=== PATIENT | female | born 1965 | race Caucasian/White ===

== ENCOUNTER 2016-05-22 11:47 | Inpatient (IN) | payer MEDICARE, OTHER ==
[~2016-05-22] VITALS: Ht 172.7 cm; Wt 82.9 kg
[~2016-05-22 11:47] MED LIST: ALPR0.25 PO; AZAT50 PO; CYCL1TAB29 PO; GABA300C5 PO; HYDR-3366 PO; VENL75TA PO; VENTAER INH
[2016-05-22] MEDS ORDERED: PRED10 PO (12:06)
[2016-05-22] MEDS ORDERED: PLAQ200T PO (12:06)
[2016-05-22] MEDS ORDERED: TRAZ100T4 PO (12:06)
[2016-05-22] MEDS ORDERED: ZOFR4TAB PO (12:06)
[2016-05-22] MEDS ORDERED: PANT20 PO (12:06)
[2016-05-22] MEDS ORDERED: FOLI5CAP PO (12:06)
--- NOTE | 2016-06-02 14:18 | MH ---
cc: VICKY PEDROZA MD, ROHIT K. M.D. BEG, SHAZIA A. MD VINTIMILLA, MARIA V. MD SRISAWAT, ANUNPORN M.D. DATE OF ADMISSION: 06/03/2016 ADMISSION DIAGNOSIS Cervical stenosis. HISTORY OF PRESENT ILLNESS This is a 50-year-old female who presented with complaints of neck pain with radiation to the right shoulder and arm to the hands as well as chronic low back pain and left leg sciatica pain. She states her pain started about 2-1/2 years ago. She states that she has pain in the left buttocks and lateral leg with numbness in her leg and the toes of her left foot. She gets excruciating spasms in the left leg. Standing exacerbates her symptoms or if she is sitting for awhile. She cannot walk around doing errands and shopping. Her left leg feels heavy when getting into her car. She has been to PT in the past which did not help. She has been to Pain Management in [place] and locally without any improvement in her symptoms. Her life is affected in every possible way. She states that if she lays down or extends her back, this helps. She has had a previous anterior C6-C7 diskectomy with fusion and plate placement in [address] Dawson at [facility] in [facility] and states that she had ongoing symptoms postoperatively with perhaps slight improvement. She also has a history of recurrent generalized seizures and is followed by Neurology. She has been taking Gabapentin which seems to have helped with the seizure for the last couple months but not affecting her chronic pain. She also has chronic steroid therapy for lupus as well as rheumatoid arthritis and is followed by Rheumatology. PAST MEDICAL HISTORY: Significant for - 1. Emphysema. 2. Gastroesophageal reflux disease. 3. Peptic ulcer. 4. Rheumatoid arthritis. 5. Seizures. 6. Depression. 7. Also significant for lupus. MEDICATIONS 1. Gabapentin 300 mg four times a day. 2. Prednisone 10 mg daily. 3. Azathioprine 50 mg b.i.d. 4. Plaquenil 20 mg b.i.d. this was placed on hold prior to surgical intervention. 5. Venlafaxine 75 mg b.i.d. 6. Cyclobenzaprine 10 mg daily. 7. Trazodone 200 mg q.h.s. 8. Pantoprazole 40 mg daily. PAST SURGICAL HISTORY 1. She has cervical fusion in March 2011. 2. Hysterectomy. 3. . 4. Cholecystectomy. 5. Appendectomy. FAMILY HISTORY Mother is at 60 68 years old, had cancer. Her father is ; she is unsure of the cause. She has two sisters and a brother who are alive. SOCIAL HISTORY She is retired. She is single. She has two children. She smokes a pack of cigarettes a day for the last 35 years. She also smokes marijuana. REVIEW OF SYSTEMS Constitutional: She denies any fever. Positive for chills. Ears, Nose and Throat: Positive for headaches and dizziness. Cardiovascular: No chest pain. Positive for palpitations. Respiratory: Positive for cough and wheezing. Genitourinary: No dysuria or hematuria. Musculoskeletal: Positive for neck and low back pain. Skin: Positive for rash. Neurologic: Positive for memory. No facial weakness or numbness. Gastrointestinal: No abdominal pain or diarrhea. Positive for constipation. Psychiatric: Positive for anxiety and depression symptoms. Endocrine: No polyuria or polydipsia. Hematologic: Positive for easy bruising but no bleeding tendencies. PHYSICAL EXAMINATION Head: Normocephalic, atraumatic. Neck: Supple. No carotid bruits heard on auscultation. Lungs: Clear to auscultation bilaterally. Heart. Regular rate and rhythm. Normal S1 and S2. Abdomen: Soft, nontender. Positive bowel sounds. Skin: No cyanosis or erythema. Musculoskeletal: She has left EHL weakness. She has a positive straight leg raise test at about 60 degrees. She otherwise has 5/5 strength in the upper and lower extremities. She ambulates without any assistive devices. She has restricted range of motion and stiffness in her neck. Neurologic: She is awake, alert and oriented. Cranial nerves II-XII are grossly intact. Her speech is fluent. Comprehension is good. Sensation is intact in the extremities. DATA REVIEWED Reviewed an MRI of the cervical spine from October 07, 2015, which reveals a disc herniation at the C5-C6 level which is moderate in size and eccentric to the right side with a ventral thecal sac compression and foraminal stenosis. She has an anterior C6/C7 interbody spacer in place along with anterior cervical plate. An MRI of the lumbar spine from October 17, 2015, shows a disc protrusion at the left L5/S1 level with overall mild to moderate foraminal stenosis. She has also had an EMG nerve conduction study which is consistent with a left S1 radiculopathy. IMPRESSION A 50-year-old female with a chronic history of neck and low back pain who has failed physical therapy and interventional pain management. She states that the last course of epidural steroid injections triggered some seizures. She has chronic epilepsy and reports that this is being treated. She has had a previous anterior C6-C7 diskectomy with fusion in 2010 by a local neurosurgeon with limited benefit. Her neck pain radiates in particular to the right shoulder and upper extremity in a non-dermatomal pattern. She has moderate C5-C6 disc herniation into the right side above the previous C6-C7 fusion. She also has low back pain which radiates into the left lateral thigh and calf to the foot with paresthesias in all of her toes. She has mild to moderate disk protrusion at the L5-S1 level eccentric to the left side. PLAN We have discussed the treatment options with the patient which include an anterior C5-C6 microdiskectomy with fusion with plate placement and removal of the previous C6-C7 plate. The procedure as well as the risks, benefits, alternatives and recovery time were explained and agreed to by the patient and we have discussed that there is a possibility that she may not improve or even be worse. We have also discussed the risk of voice hoarseness and ptosis as well as dysphagia with a re-do anterior cervical procedure involving an adjacent level. We have also discussed treatment of her lumbar spine which we would recommend continued conservative treatment measures at this point. The patient is requesting that we proceed with cervical spine surgery. She understands the risks involved with surgery which include but are not limited to bleeding, infection, muscle weakness, voice hoarseness, difficulty swallowing, heart attack, stroke, blood clots, non-fusion, scar tissue formation, voice hoarseness and ptosis as well as dysphagia. She understands the procedure as well as those risks involved and she is requesting that we proceed and she was therefore scheduled accordingly. Dictated by: Brad Bloom PA-C MD EMILY Gomez/GRACIE /1:29 PM /1:55 PM
[2016-06-03] MEDS ORDERED: VANCOMYCIN 1,000 MG/NS 250ML (for <70 kg) IV SCH ×2 (06:15)
[2016-06-03] MEDS ORDERED: METOPROLOL TARTRATE 25 MG TAB PO PRN (06:15)
[2016-06-03] MEDS ORDERED: INSULIN HUMAN REGULAR 1,000 UNITS/10 ML VIAL SQ PRN (06:15)
[2016-06-03 06:21] VITALS: BP 119/80; PULSE 94; RESP 16; TEMP 97.1; O2SAT 94
[2016-06-03 06:41] VITALS: BP 119/80; PULSE 94; RESP 16; TEMP 97.1; O2SAT 94
[2016-06-03] MEDS ORDERED: VANCOMYCIN HCL 1000 MG VIAL ONE ×2 (06:59→08:18)
[2016-06-03] MEDS ORDERED: THROMBIN (TOPICAL) 5,000 UNIT VIAL ONE (06:59)
[2016-06-03] MEDS ORDERED: GELFOAM SIZE 100 ONE (06:59)
[2016-06-03] MEDS ORDERED: BUPIVACAINE/EPINEPHRINE 0.5% 50 ML VIAL ONE (07:08)
[2016-06-03] MEDS ORDERED: FAMOTIDINE 20 MG/2 ML VIAL ONE (07:52)
[2016-06-03] MEDS ORDERED: diphenhydrAMINE HCL 50 MG/ML VIAL ONE (07:52)
[2016-06-03] MEDS ORDERED: HYDROCORTISONE SOD SUCCINATE 100 MG VIAL ONE (07:52)
[2016-06-03] MEDS ORDERED: MIDAZOLAM HCL 2 MG/2 ML VIAL ONE (07:52)
[2016-06-03] MEDS ORDERED: RESP: ALBUTEROL 2.5 MG/3 ML NEB (SCH) ONE (07:56)
[2016-06-03] MEDS ORDERED: SODIUM CHLOR 0.9% 1000 ML INJ 1,000 ML IV SCH (08:00)
[2016-06-03] MEDS ORDERED: SODIUM CHLORID 0.9% 500 ML IV SCH (08:00)
[2016-06-03] MEDS ORDERED: LACTATED RINGER'S 1000 ML IV SCH (08:00)
[2016-06-03] MEDS ORDERED: PROPOFOL 200 MG/20 ML AMP IV ONE (08:07)
[2016-06-03] MEDS ORDERED: LACTATED RINGER'S 1000 ML INJ 1,000 ML IV ONE (08:07)
[2016-06-03] MEDS ORDERED: NEOSTIGMINE 3 MG/3 ML SYR IV ONE (08:07)
[2016-06-03] MEDS ORDERED: ONDANSETRON HCL 4 MG/2 ML VIAL IV PUSH ONE (08:07)
[2016-06-03] MEDS ORDERED: PHENYLEPHRINE HCL 10 MG/ML VIAL IV ONE (08:07)
[2016-06-03] MEDS ORDERED: NS + KCL 20 MEQ INJ 1,000 ML IV SCH (10:44)
[2016-06-03] MEDS ORDERED: cloNIDine HCL 0.1 MG TAB PO PRN (10:45)
[2016-06-03] MEDS ORDERED: ALPRAZolam 0.25 MG TAB PO PRN (10:45)
[2016-06-03] MEDS ORDERED: BISACODYL 10 MG SUPP PR PRN (10:45)
[2016-06-03] MEDS ORDERED: MAGNESIUM HYDROXIDE SUSP 30 ML CUP PO PRN (10:45)
[2016-06-03] MEDS ORDERED: ACETAMINOPHEN/HYDROcodone 325 MG/10 MG TAB PO PRN (10:45)
[2016-06-03] MEDS ORDERED: ONDANSETRON HCL 4 MG/2 ML VIAL IV PRN (10:45)
[2016-06-03] MEDS ORDERED: RESP: ALBUTEROL 2.5 MG/3 ML NEB (PRN) NEB (10:45)
[2016-06-03] MEDS ORDERED: MENTHOL LOZENGE SUCK-ON PRN (10:45)
[2016-06-03] MEDS ORDERED: ALBUTEROL SULFATE 90 MCG/ACT HFA 8 GM INHALER INH PRN (10:45)
[2016-06-03] MEDS ORDERED: PROMETHAZINE INJ 25 MG/ML VIAL IM PRN (10:45)
[2016-06-03] MEDS ORDERED: ZOLPIDEM TARTRATE 5 MG TAB PO PRN (10:45)
[2016-06-03] MEDS ORDERED: ALUMINUM/MAGNESIUM/SIMETH 30 ML CUP PO PRN (10:45)
[2016-06-03] MEDS ORDERED: SODIUM CHLORIDE 0.9% FLUSH 5 ML FLUSH IVF PRN (10:45)
[2016-06-03] MEDS ORDERED: fentaNYL CITRATE 250 MCG/5 ML AMP ONE (10:51)
--- NOTE | 2016-06-03 10:55 | PD.OP ---
cc: Wilder Mccormick MD; Clif Guerra MD Operative Report Date of Surgery: Jun 03, 2016 Preoperative Diagnosis: Cervical C5-6 disc herniation with associated neck pain and intractable radiculopathy; previous C6-7 anterior cervical fusion with plate placement Postoperative Diagnosis: Same Procedure: Anterior cervical C5-6 microdiscectomy with interbody fusion; anterior C5-6 plate placement; removal of C6-7 anterior cervical plate; C5-6 interbody cage placement; microsurgical technique Anesthesia: Gen. endotracheal by Mera Carrillo Surgeon: Marcel Bueno M.D. Manager Sterile Processing(s): Nallely Castillo Operation and Findings: Following administration of general endotracheal anesthesia, the patient received a gram of vancomycin and Decadron 10 mg intravenously. Sequential compression devices were placed in supine position on a Deion table and all pressure points adequately padded. The head secured in a donut and anterior cervical region then shaved and prepped with Chloraprep and sterilely draped with Ioban along with the usual sterile draping. A transverse skin incision on the right side of the neck at the previous incision site was then made after infiltrating the skin with 0.5% Marcaine with epinephrine solution extending down through the platysma. At the anterior border of the sternocleidomastoid further dissection was undertaken developing a plane between the carotid sheath laterally and the trachea esophagus medially. The prevertebral fascia was exposed and dissected out. The medial attachments of the longus colli muscles were detached and a self-retaining retractor used for exposure. The C5-6 disc space was localized with a marking the disc space and using lateral fluoroscopy and the anterior C6-7 cervical plate was evident and was removed along with the screws. A solid C6-7 interbody fusion was noted. Woodruff distraction screws 14 mm length were placed one in the C5 and one in the C6 body interbody distraction and exposure. There was significant disc degeneration with disc height collapse and anterior osteophytes noted at the C5-6 level and the osteophytes were resected with a Leksell and annulus incised with a 15 blade and further dissection undertaken using microtechnique with microscope magnification. Diskectomy was undertaken with pituitaries and the endplates were also decorticated with curettes and drill bit. And more posteriorly there was disk osteophyte complex compressing the thecal sac along with a significant uncovertebral joint hypertrophy with foraminal stenosis which was decompressed along with removal of the posterior longitudinal ligaments at both levels. There is also herniated disc fragment and fairly migrated on the right side which was removed. The foramen was decompressed bilaterally using a Kerrison's and palpation with a nerve hook, the exiting nerve roots were felt to be free. The area was then copiously irrigated. I then placed a Peek cage packed with local autograft bone at the C5-6 interspace under fluoroscopy guidance. Woodruff distraction pins were removed and the holes plugged with Gelfoam for hemostasis. In order to facilitate the fusion and provide stabilization, a Precision spine cervical plate was then placed with two 14 mm variable angle screws in the C5 body and two 14 mm fixed angle screws in the C6 body. The plate screw locking mechanism was then engaged. AP and lateral fluoroscopy confirmed good placement of the construct and the retractor was then removed. Muscular bleeding points were cauterized with bipolar cautery and Gelfoam was then also used for hemostasis which was removed. The platysma was then approximated using 3-0 Vicryl interrupted stitches and 3-0 Vicryl subcuticular stitch also placed in an interrupted fashion, and final skin closure was with Mastisol and Steri-Strips. Sterile dressing was then applied. The patient was then extubated and taken to the recovery room. There are no intraoperative complications and all sponge and needle counts were correct at the end of procedure. Estimated blood loss was less than 50 cc. The patient did undergo intraoperative neurologic monitoring which remained stable throughout the surgery. Marcel Bueno MD Jun 03, 2016 10:55
[2016-06-03] MEDS ORDERED: *HYDROmorphone PF 1 MG VIAL PERIprocedural Use ONLY ONE ×2 (11:00→11:44)
[2016-06-03] MEDS ORDERED: DO NOT ADM ANY ANTICOAGULANT DRUGS XX PRN (11:15)
--- NOTE | 2016-06-03 11:22 | RADRPT ---
EXAM DATE/TIME: 06/03/2016 08:23 [facility] COMPARISON: No previous studies available for comparison. INDICATIONS: Anterior cervical fusion C5-6, removal hardware C6-7. MEDICAL HISTORY: Spinal stenosis. SURGICAL HISTORY: Anterior cervical fusion 6-7. ENCOUNTER: Initial ACUITY: 1 day PAIN SCORE: 0/10 LOCATION: Cervical spine. FINDINGS: Patient is status post anterior cervical fusion at C5-C6 with bone plate and screws. Alignment is an atomic in the AP and lateral projection. CONCLUSION: Anatomic alignment. Steve Pitts MD FACR on June 03, 2016 at 11:05 Board Certified Radiologist. This report was verified electronically.
[2016-06-03] MEDS: CLINDAMYCIN INJ 600 MG in SODIUM CHLORIDE 0.9% INJ 100 ML IV SCH ×3 (11:56→23:43)
[2016-06-03] MEDS: VENLAFAXINE HCL 75 MG TAB PO SCH ×2 (13:49→18:27)
[2016-06-03] MEDS: CYCLOBENZAPRINE HCL 10 MG TAB PO SCH ×2 (13:49→18:27)
[2016-06-03] MEDS: HYDROCORTISONE SOD SUCCINATE 100 MG VIAL IV PUSH SCH ×2 (14:00→21:29)
[2016-06-03] MEDS: ACETAMINOPHEN/HYDROcodone 325 MG/10 MG TAB PO PRN ×2 (14:15→23:47)
[2016-06-03] MEDS ORDERED: *PROMETHAZINE 25 MG/ML VIAL PERIprocedural use ONLY ONE (14:16)
[2016-06-03 16:37] VITALS: BP 119/61; PULSE 58; RESP 20; TEMP 95.7; O2SAT 98
[2016-06-03] MEDS: HYDROmorphone HCL PF 1 MG/ML VIAL IV PUSH PRN ×2 (16:43→19:55)
[2016-06-03 20:59] VITALS: BP 126/76; PULSE 100; RESP 20; TEMP 97.4; O2SAT 98
[2016-06-03] MEDS ORDERED: traZODone HCL 100 MG TAB PO SCH (21:00)
[2016-06-03] MEDS ORDERED: predniSONE 10 MG TAB PO SCH (21:00)
[2016-06-03] MEDS: SODIUM CHLORIDE 0.9% FLUSH 5 ML FLUSH IVF SCH (21:00)
[2016-06-03] MEDS: DOCUSATE SODIUM 100 MG CAP PO SCH (21:15)
[2016-06-03] MEDS: GABAPENTIN 300 MG CAP PO SCH (21:16)
[2016-06-03] MEDS: HYDROXYCHLOROQUINE SULFATE 200 MG TAB PO SCH (21:28)
[2016-06-04 00:35] VITALS: BP 113/71; PULSE 95; RESP 18; TEMP 97.4; O2SAT 93
[2016-06-04 04:24] VITALS: BP 113/74; PULSE 96; RESP 16; TEMP 97.2; O2SAT 94
[2016-06-04] MEDS: HYDROmorphone HCL PF 1 MG/ML VIAL IV PUSH PRN ×2 (05:05→08:54)
[2016-06-04] MEDS: CLINDAMYCIN INJ 600 MG in SODIUM CHLORIDE 0.9% INJ 100 ML IV SCH (05:10)
[2016-06-04] MEDS: HYDROCORTISONE SOD SUCCINATE 100 MG VIAL IV PUSH SCH (05:10)
[2016-06-04 08:00] VITALS: BP 125/71; PULSE 93; RESP 18; TEMP 96.2; O2SAT 93
--- NOTE | 2016-06-04 08:54 | HHI.NSPN ---
History Chief Complaint: Low back pain. Interval History Pt underwent a C5/C6 ACF with removal of C6/C7 cervical plate. She states he neck is feeling sore but her low back is faring up. No radiculopathy in UEs. No paresthesias in UEs. She is urinating well. Requests discharge home today. Review of Systems General: Negative for: fever, chills, insomnia Respiratory: Negative for: shortness of breath, cough, sputum Cardiovascular: Negative for: chest pain Gastrointestinal: Negative for: nausea, vomitting, diarrhea, constipation Exam Results Vital Signs Date Time Temp Pulse Resp B/P Pulse Ox O2 Delivery O2 Flow Rate FiO2 06/04/16 05:35 18 06/04/16 04:24 97.2 96 113/74 94 06/03/16 18:10 Nasal Cannula 2.00 Intake and Output 06/03/16 06/03/16 06/03/16 07:59 15:59 23:59 Intake Total 1970 ml 120 ml Output Total 425 ml 550 ml Balance 1545 ml -430 ml Physical Examination Resp: CTA bilaterally Heart: NSR no murmurs Abd: soft positive bs Skin: No cyanosis or erythema Muscle: Moves all 4 extremities. Mild 4/5 right hand intrinsic weakness, otherwise 5/5 strength. Neuro: Pt awake and alert. Follows commands well. Speech clear and appropriate. Lab, Micro, Other Results 06/03/16 06/03/16 06/04/16 14:59 22:59 06:59 Intake Total 1970 ml 120 ml Output Total 425 ml 550 ml Balance 1545 ml -430 ml Intake Oral 30 ml 120 ml IV Total 140 ml Other 1800 ml Output Urine Total 550 ml Estimated Blood Loss 25 ml Other 400 ml # Voids 2 2 # Bowel Movements 0 0 Medical Decision Making Impression and Plan A: 50 y/o FM s/p C5/C6 anterior cervical fusion with removal of C6/C7 cervical plate. P: Discharge pt home today. Discussed restrictions with pt. change bandage daily. Brad Bloom Jun 04, 2016 08:54
[2016-06-04] MEDS: DOCUSATE SODIUM 100 MG CAP PO SCH (08:56)
[2016-06-04] MEDS: VENLAFAXINE HCL 75 MG TAB PO SCH (08:56)
[2016-06-04] MEDS: GABAPENTIN 300 MG CAP PO SCH (08:57)
[2016-06-04] MEDS: HYDROXYCHLOROQUINE SULFATE 200 MG TAB PO SCH (08:57)
[2016-06-04] MEDS: CYCLOBENZAPRINE HCL 10 MG TAB PO SCH (08:57)
[2016-06-04] MEDS: SODIUM CHLORIDE 0.9% FLUSH 5 ML FLUSH IVF SCH (08:58)
[2016-06-04] MEDS ORDERED: FOLIC ACID 1 MG TAB PO SCH (09:00)
[2016-06-04] MEDS ORDERED: PANTOPRAZOLE SOD 20 MG DELAYED RELEASE TAB PO SCH (09:00)
[2016-06-04] MEDS ORDERED: azaTHIOprine 50 MG TAB PO SCH (09:00)
[2016-06-04] MEDS ORDERED: HYDR-3583 PO (09:21)
[2016-06-04 10:29] VITALS: O2SAT 94
[2016-06-12] MEDS ORDERED: MEDR4PAK PO (14:03)
[2016-06-12] MEDS ORDERED: DIAZ5 PO (14:21)
[2016-06-30] MEDS ORDERED: DIAZ5 PO (08:20)
[2016-06-30] MEDS ORDERED: HYDR-3583 PO (08:20)
[2016-07-15] MEDS ORDERED: DIAZ5 PO (15:27)
[2016-07-27] MEDS ORDERED: NORC5TAB PO (10:56)
[2016-08-20] MEDS ORDERED: HYDR-3583 PO (14:32)
[2016-08-20] MEDS ORDERED: DIAZ5 PO (14:32)
== END 2016-06-04 10:46 | disposition home or self-care (01) | DRG 473 ==
LOC: HSDI 06-03 05:41 → N05B 06-03 16:13
PROVIDERS: ADMIT Neurological Surgery; ATTEND Neurological Surgery
PROC: 0RB30ZZ Excision of Cervical Vertebral Disc, Open Approach (ICD-10-PCS; 2016-06-03)
PROC: 0RP104Z Removal of Internal Fixation Device from Cervical Vertebral Joint, Open Approach (ICD-10-PCS; 2016-06-03)
PROC: 4A11X4G Monitoring of Peripheral Nervous Electrical Activity, Intraoperative, External Approach (ICD-10-PCS; 2016-06-03)
PROC: 0RG10A0 Fusion of Cervical Vertebral Joint with Interbody Fusion Device, Anterior Approach, Anterior Column, Open Approach (ICD-10-PCS; principal; 2016-06-03 08:07)
DX: M50.122 Cervical disc disorder at C5-C6 level with radiculopathy (principal); J43.9 Emphysema, unspecified; M32.9 Systemic lupus erythematosus, unspecified; M48.02 Spinal stenosis, cervical region; M51.16 Intervertebral disc disorders with radiculopathy, lumbar region; G89.29 Other chronic pain; F17.210 Nicotine dependence, cigarettes, uncomplicated; K21.9 Gastro-esophageal reflux disease without esophagitis; M06.9 Rheumatoid arthritis, unspecified; G40.909 Epilepsy, unspecified, not intractable, without status epilepticus; Z98.1 Arthrodesis status; M51.17 Intervertebral disc disorders with radiculopathy, lumbosacral region; Z79.52 Long term (current) use of systemic steroids; F32.9 Major depressive disorder, single episode, unspecified
CPT/HCPCS: 72040; 76000; 94150; 94664; C1713; J1170; J1200; J1720; J2250; J2370; J2405; J2550; J2710; J3010; J3370; J3480; J7120; J7500; J7512; J7613; L0150; L0172

== ENCOUNTER 2016-06-27 00:36 | Emergency (ER) | payer MEDICARE, OTHER ==
[~2016-06-27] VITALS: Ht 172.7 cm; Wt 80.0 kg
[~2016-06-27 00:36] MED LIST changes: +DIAZ5 PO; +FOLI5CAP PO; -HYDR-3366 PO; +HYDR-3583 PO; +MEDR4PAK PO; +PANT20 PO; +PLAQ200T PO; +PRED10 PO; +TRAZ100T4 PO; +ZOFR4TAB PO
[2016-06-27 00:40] VITALS: BP 122/64; PULSE 92; RESP 22; TEMP 98.6; O2SAT 95
--- NOTE | 2016-06-27 01:04 | PD ---
HPI Chief Complaint: Respiratory Symptoms Time Seen by Provider: 00:56 Travel History International Travel<30 days: No Contact w/Intl Traveler<30days: No Traveled to known affect area: No History of Present Illness HPI This is a 50-year-old female who had an ACDF on June 03 who presents to the emergency department with cough, rhinorrhea, headache, and subjective chills for 1 week. She says her symptoms of worsened over the past day. She has a productive cough with green and yellow sputum. She does have a smoking history. She has been taking [place] ever since her surgery but she doesn't have any left. She says she feels miserable and every time she coughs her head hurts and she feels like her neck wound is going to "explode". PFSH Past Medical History Arthritis: Yes (RHEUMATOID) Autoimmune Disease: Yes (LUPUS) Heart Rhythm Problems: No Cancer: No Cardiac Catheterization: No Cardiovascular Problems: No High Cholesterol: No Congestive Heart Failure: No Diabetes: No Diminished Hearing: No Endocrine: No Gastrointestinal Disorders: Yes (ENLARGED LIVER) Genitourinary: No Hepatitis: No Hiatal Hernia: No Hypertension: No Immune Disorder: Yes (LUPUS) Musculoskeletal: Yes (RA) Neurologic: Yes (SEIZURE) Psychiatric: No (ANXIETY, DEPRESSION) Myocardial Infarction: No Seizures: Yes Thyroid Disease: No Menopausal: Yes Ectopic : Yes (4) Past Surgical History Abdominal Surgery: Yes (APPENDECTOMY, CHOLECYSTECTOMY) AICD: No Appendectomy: Yes Cardiac Surgery: No Section: Yes Cholecystectomy: Yes Coronary Artery Bypass Graft: No Ear Surgery: No Endocrine Surgery: No Eye Surgery: No Genitourinary Surgery: No Gynecologic Surgery: Yes (HYSTERECTOMY) Hysterectomy: Yes Joint Replacement: No Oral Surgery: No Pacemaker: No Thoracic Surgery: No Other Surgery: Yes (LUNG BX) Social History Alcohol Use: No Tobacco Use: Yes (1ppd) Substance Use: Yes (MARIJUIANA) Allergies-Medications (Allergen,Severity, Reaction): Coded Allergies: Codeine (Verified Allergy, Severe, "DUE TO LIVER", 06/27/16) Morphine (Verified Allergy, Severe, 06/27/16) Tylenol (Verified Allergy, Severe, "DUE TO LIVER", 06/27/16) Vicodin (Verified Allergy, Severe, "DUE TO LIVER", 06/27/16) Penicillin (Verified Allergy, Intermediate, vomiting, 06/27/16) Azithromycin (Verified Allergy, Unknown, 06/27/16) Toradol (Verified Adverse Reaction, Mild, "makes me violently sick", ) Reported Meds & Prescriptions Reported Meds & Active Scripts Active Reported Trazodone (Trazodone HCl) 100 Mg Tab 200 Mg PO HS Protonix (Pantoprazole Sodium) 20 Mg Tab 20 Mg PO DAILY Prednisone 10 Mg Tab 10 Mg PO HS Plaquenil (Hydroxychloroquine Sulfate) 200 Mg Tab 200 Mg PO BID Take with food Folic Acid 5 Mg Cap 5 Mg PO DAILY Ventolin Hfa 18 GM Inh (Albuterol Sulfate) 90 Mcg/Act Aer 2 Puff INH Q4-6H PRN Effexor (Venlafaxine HCl) 75 Mg Tab 75 Mg PO TID Gabapentin 300 Mg Cap 600 Mg PO BID Flexeril (Cyclobenzaprine HCl) 10 Mg Tab 10 Mg PO TID Azathioprine 50 Mg Tab 50 Mg PO DAILY Hazardous agent use appropriate precautions for handling and disposal. Review of Systems Except as stated in HPI: all other systems reviewed are Neg Physical Exam Narrative GENERAL: Tearful, anxious SKIN: Warm and dry. HEAD: Atraumatic. Normocephalic. EYES: Pupils equal and round. No injection or drainage. ENT: Moist mucous membranes NECK: Trachea midline. Neck is immobilized in a cervical collar. CARDIOVASCULAR: Regular rate and rhythm. No murmur appreciated. RESPIRATORY: Diffuse wheezing, tachypnea GASTROINTESTINAL: Abdomen soft, non-tender, nondistended. MUSCULOSKELETAL: No obvious deformities. NEUROLOGICAL: Awake and alert. No obvious cranial nerve deficits. Moving all extremities. PSYCHIATRIC: Appropriate mood and affect; insight and judgment normal. Data Data Last Documented VS Vital Signs Date Time Temp Pulse Resp B/P Pulse Ox O2 Delivery O2 Flow Rate FiO2 06/27/16 03:10 85 20 102/66 92 Nasal Cannula 2 06/27/16 01:09 98.5 Orders Complete Blood Count With Diff (06/27/16 01:01) Comprehensive Metabolic Panel (06/27/16 01:01) Chest, Single Ap (06/27/16 ) Influenzae A/B Antigen (06/27/16 01:01) Methylprednisolone So Succ Inj (Solumedr (06/27/16 01:15) Albuterol-Ipratropium Neb (Duoneb Neb) (06/27/16 01:15) Acetamin-Hydrocod 325-5 Mg ([place] 5-325 (06/27/16 01:15) Hydromorphone Pf Inj (Dilaudid Pf Inj) (06/27/16 02:15) Ondansetron Inj (Zofran Inj) (06/27/16 02:30) Lorazepam Inj (Ativan Inj) (06/27/16 02:45) Labs Laboratory Tests Test 06/27/16 01:44 White Blood Count 8.1 TH/MM3 Red Blood Count 4.63 MIL/MM3 Hemoglobin 15.4 GM/DL Hematocrit 43.9 % Mean Corpuscular Volume 94.7 FL Mean Corpuscular Hemoglobin 33.3 PG Mean Corpuscular Hemoglobin 35.1 % Concent Red Cell Distribution Width 13.4 % Platelet Count 242 TH/MM3 Mean Platelet Volume 8.7 FL Neutrophils (%) (Auto) 59.8 % Lymphocytes (%) (Auto) 29.9 % Monocytes (%) (Auto) 6.6 % Eosinophils (%) (Auto) 2.5 % Basophils (%) (Auto) 1.2 % Neutrophils # (Auto) 4.9 TH/MM3 Lymphocytes # (Auto) 2.4 TH/MM3 Monocytes # (Auto) 0.5 TH/MM3 Eosinophils # (Auto) 0.2 TH/MM3 Basophils # (Auto) 0.1 TH/MM3 CBC Comment DIFF FINAL Differential Comment Sodium Level 142 MEQ/L Potassium Level 3.8 MEQ/L Chloride Level 108 MEQ/L Carbon Dioxide Level 24.0 MEQ/L Anion Gap 10 MEQ/L Blood Urea Nitrogen 15 MG/DL Creatinine 1.11 MG/DL Estimat Glomerular Filtration 52 ML/MIN Rate Random Glucose 94 MG/DL Calcium Level 8.5 MG/DL Total Bilirubin 0.2 MG/DL Aspartate Amino Transf 11 U/L (AST/SGOT) Alanine Aminotransferase 22 U/L (ALT/SGPT) Alkaline Phosphatase 87 U/L Total Protein 7.1 GM/DL Albumin 3.3 GM/DL MDM Medical Decision Making Medical Screen Exam Complete: Yes Emergency Medical Condition: Yes Interpretation(s) Afebrile, mild tachycardia, normotensive No leukocytosis Electrolytes within normal limits Last 24 hours Impressions Chest X-Ray 06/27/16 0000 Signed Impressions: Service Date/Time: Monday, June 27, 2016 01:11 - CONCLUSION: No acute disease. Marvin Ayala MD Differential Diagnosis Bronchitis, COPD exacerbation, pulmonary embolism, pneumonia Narrative Course This is a 50-year-old female who recently had an ACDF who presents to the emergency department with shortness of breath, and productive cough with yellow and green sputum. On exam. She has a smoking history. She is placed on a monitor and an IV was established. She was given serial bronchodilator treatments and methylprednisolone. Labs were obtained which were reassuring. Chest x-ray was negative for pneumonia. Patient was given pain control and an anxiolytic as she was very tearful and anxious upon arrival. She says she feels much better. Her wheezing has resolved. I think patient is appropriate for outpatient treatment for bronchitis. She will be discharged home. Diagnosis Primary Impression: Bronchitis Patient Instructions: General Instructions Additional Instructions: If you develop severe shortness of breath, chest pain, or difficulty breathing return to the emergency department. Use albuterol every 4 hours for the next 2 days. Then use as needed for wheezing. Complete your course of steroids. Complete your course of antibiotics. Follow up with your primary care physician in 2-3 days if your symptoms have not improved. Med/Other Pt SpecificInfo: Prescription(s) given, Existing Med Changed ( take 40 mg of prednisone for 4 days and then go back to 10 mg a day) Disposition: 01 DISCHARGE HOME Condition: Stable Daphney Hernandez MD Jun 27, 2016 01:04
[2016-06-27 01:09] VITALS: BP 118/74; PULSE 93; RESP 28; TEMP 98.5; O2SAT 96
[2016-06-27] MEDS ORDERED: ACETAMINOPHEN/HYDROcodone 325 MG/5 MG TAB PO ONE (01:15)
[2016-06-27] MEDS ORDERED: methylPREDNISolone SOD SUCC 125 MG/2 ML VIAL IV PUSH ONE (01:15)
--- NOTE | 2016-06-27 01:22 | RADRPT ---
EXAM DATE/TIME: 06/27/2016 01:11 [facility] COMPARISON: CHEST SINGLE AP, July 07, 2013, 18:15. INDICATIONS : Cough. MEDICAL HISTORY : None. SURGICAL HISTORY : Fusion, cervical. ENCOUNTER: Initial ACUITY: 3 days PAIN SCORE: 0/10 LOCATION: Bilateral chest FINDINGS: A single view of the chest demonstrates the lungs to be symmetrically aerated without evidence of mas s, infiltrate or effusion. The cardiomediastinal contours are unremarkable. Osseous structures are intact. ACDF hardware overlies the cervical spine. CONCLUSION: No acute disease. Marvin Ayala MD on June 27, 2016 at 1:20 Board Certified Radiologist. This report was verified electronically.
[2016-06-27] MEDS: RESP: ALBUTEROL 2.5 MG/IPRATROPIUM 0.5 MG NEB (SCH) INH (01:47)
[2016-06-27 02:04] LABS: AUTOMATED NEUTROPHIL # 4.9 TH/MM3 (1.8-7.7); BASOPHIL # 0.1 TH/MM3 (0-0.2); BASOPHIL % 1.2 % (0.0-2.0); EOSINOPHIL # 0.2 TH/MM3 (0-0.4); EOSINOPHIL % 2.5 % (0.0-4.0); HEMATOCRIT 43.9 % (35.0-46.0); HEMO FLAGS DIFF FINAL; LYMPH % 29.9 % (9.0-44.0); LYMPHOCYTE # 2.4 TH/MM3 (1.0-4.8); MEAN CELL VOLUME 94.7 FL (80.0-100.0); MEAN CORPUSCULAR HEMOGLOBIN 33.3 PG (27.0-34.0); MEAN CORPUSCULAR HGB CONC 35.1 % (32.0-36.0); MONO % 6.6 % (0.0-8.0); NEUT % 59.8 % (16.0-70.0); PLATELET COUNT 242 TH/MM3 (150-450); RED BLOOD COUNT 4.63 MIL/MM3 (4.00-5.30); RED CELL DISTRIBUTION WIDTH 13.4 % (11.6-17.2); WHITE BLOOD COUNT 8.1 TH/MM3 (4.0-11.0)
[2016-06-27] MEDS ORDERED: HYDROmorphone HCL PF 1 MG/ML VIAL IV PUSH ONE (02:15)
[2016-06-27 02:26] LABS: ALT (GPT) 22 U/L (10-53); ANION GAP 10 MEQ/L (5-15); AST (GOT) 11 U/L (15-37); BLOOD UREA NITROGEN 15 MG/DL (7-18); CHLORIDE 108 MEQ/L (98-107); GLOMERULAR FILTRATION RATE 52 ML/MIN (>89); POTASSIUM 3.8 MEQ/L (3.5-5.1); SODIUM (NA) 142 MEQ/L (136-145)
[2016-06-27 02:28] LABS: ALKALINE PHOSPHATASE 87 U/L (45-117); TOTAL BILIRUBIN ADULT 0.2 MG/DL (0.2-1.0)
[2016-06-27] MEDS ORDERED: ONDANSETRON HCL 4 MG/2 ML VIAL IV ONE (02:30)
[2016-06-27] MEDS ORDERED: LORazepam 2 MG/ML VIAL IV PUSH ONE (02:45)
[2016-06-27 03:10] VITALS: BP 102/66; PULSE 85; RESP 20; O2SAT 92
[2016-06-27] MEDS ORDERED: AZIT250T3 PO (03:22)
[2016-06-27] MEDS ORDERED: PRED20 PO (03:22)
[2016-06-30] MEDS ORDERED: DIAZ5 PO (08:20)
[2016-06-30] MEDS ORDERED: HYDR-3583 PO (08:20)
[2016-07-15] MEDS ORDERED: DIAZ5 PO (15:27)
[2016-07-27] MEDS ORDERED: NORC5TAB PO (10:56)
[2016-08-20] MEDS ORDERED: DIAZ5 PO (14:32)
[2016-08-20] MEDS ORDERED: HYDR-3583 PO (14:32)
== END 2016-06-27 03:37 | disposition home or self-care (01) ==
LOC: NEPC 00:36
DX: J40 Bronchitis, not specified as acute or chronic (principal); F17.200 Nicotine dependence, unspecified, uncomplicated; M32.9 Systemic lupus erythematosus, unspecified
CPT/HCPCS: 71010; 80053; 85025; 87804; 94640; 94664; 96374; 96375; 99284; J1170; J2060; J2405; J2930

== ENCOUNTER 2016-06-29 07:26 | Emergency (ER) | payer MEDICARE, OTHER ==
[~2016-06-29] VITALS: Ht 172.7 cm; Wt 80.0 kg
[~2016-06-29 07:26] MED LIST changes: -ALPR0.25 PO; +AZIT250T3 PO; -DIAZ5 PO; -HYDR-3583 PO; -MEDR4PAK PO; +PRED20 PO; -ZOFR4TAB PO
[2016-06-29 07:31] VITALS: BP 117/69; PULSE 104; RESP 24; TEMP 97.6; O2SAT 95
[2016-06-29 07:46] VITALS: BP 112/64; PULSE 89; RESP 24
[2016-06-29 07:51] VITALS: O2SAT 97
--- NOTE | 2016-06-29 07:54 | PD ---
HPI Chief Complaint: Respiratory Symptoms Time Seen by Provider: 07:40 Travel History International Travel<30 days: No Contact w/Intl Traveler<30days: No Traveled to known affect area: No History of Present Illness HPI 50yo F with PMH of lupus and cig smoker here with c/o shortness of breath. Pt was just here 06/27/16 for similar complaints and discharged with impression of bronchitis and given prednisone. Pt is very anxious appearing and states she cant breathe. Pt is hyperventilating and complains of left ear pain, coughing, rhinorrhea. States there is chest pain with cough. Denies any fever, n/v, abdominal pain, focal weakness or numbness. PFSH Past Medical History Arthritis: Yes (RHEUMATOID) Autoimmune Disease: Yes (LUPUS) Heart Rhythm Problems: No Cancer: No Cardiac Catheterization: No Cardiovascular Problems: No High Cholesterol: No Congestive Heart Failure: No Diabetes: No Diminished Hearing: No Endocrine: No Gastrointestinal Disorders: Yes (ENLARGED LIVER, GERD, IBS) Genitourinary: No Hepatitis: No Hiatal Hernia: No Hypertension: No Immune Disorder: Yes (LUPUS) Musculoskeletal: Yes (RA) Neurologic: Yes (SEIZURE) Psychiatric: Yes (ANXIETY, DEPRESSION) Myocardial Infarction: No Seizures: Yes Thyroid Disease: No ?: Not Menopausal: Yes Ectopic : Yes (4) Past Surgical History Abdominal Surgery: Yes (APPENDECTOMY, CHOLECYSTECTOMY) AICD: No Appendectomy: Yes Cardiac Surgery: No Section: Yes Cholecystectomy: Yes Coronary Artery Bypass Graft: No Ear Surgery: No Endocrine Surgery: No Eye Surgery: No Genitourinary Surgery: No Gynecologic Surgery: Yes (HYSTERECTOMY) Hysterectomy: Yes (2009) Joint Replacement: No Oral Surgery: No Pacemaker: No Thoracic Surgery: No Other Surgery: Yes (LUNG BX) Social History Alcohol Use: No Tobacco Use: Yes (1ppd) Substance Use: Yes (MARIJUIANA) Allergies-Medications (Allergen,Severity, Reaction): Coded Allergies: Codeine (Verified Allergy, Severe, "DUE TO LIVER", 06/29/16) Morphine (Verified Allergy, Severe, 06/29/16) Tylenol (Verified Allergy, Severe, "DUE TO LIVER", 06/29/16) Vicodin (Verified Allergy, Severe, "DUE TO LIVER", 06/29/16) Penicillin (Verified Allergy, Intermediate, vomiting, 06/29/16) Toradol (Verified Adverse Reaction, Mild, "makes me violently sick", ) Reported Meds & Prescriptions Reported Meds & Active Scripts Active Azithromycin 250 Mg Tab 250 Mg PO DIRECTED Take 2 tabs (500 mg) on day 1 then 1 tab daily x 4 days. Prednisone 20 Mg Tab 40 Mg PO DAILY 4 Days Reported Trazodone (Trazodone HCl) 100 Mg Tab 200 Mg PO HS Protonix (Pantoprazole Sodium) 20 Mg Tab 20 Mg PO DAILY Prednisone 10 Mg Tab 10 Mg PO HS Plaquenil (Hydroxychloroquine Sulfate) 200 Mg Tab 200 Mg PO BID Take with food Folic Acid 5 Mg Cap 5 Mg PO DAILY Ventolin Hfa 18 GM Inh (Albuterol Sulfate) 90 Mcg/Act Aer 2 Puff INH Q4-6H PRN Effexor (Venlafaxine HCl) 75 Mg Tab 75 Mg PO TID Gabapentin 300 Mg Cap 600 Mg PO BID Flexeril (Cyclobenzaprine HCl) 10 Mg Tab 10 Mg PO TID Azathioprine 50 Mg Tab 50 Mg PO DAILY Hazardous agent use appropriate precautions for handling and disposal. Review of Systems Except as stated in HPI: all other systems reviewed are Neg Physical Exam Narrative GENERAL: 50yo F anxious appearing, tearful. SKIN: Warm and dry. HEAD: Atraumatic. Normocephalic. EYES: Pupils equal and round. No scleral icterus. No injection or drainage. ENT: Left TM: +Cerumen, unable to visualize TM. Pt has been using peroxide. Throat: Clear. NECK: Trachea midline. No JVD. No cervical lymph adenopathy. CARDIOVASCULAR: Regular rate and rhythm. No murmur appreciated. RESPIRATORY: Pt is hyperventilating. End expiratory wheezing, may be upper airway related. GASTROINTESTINAL: Abdomen soft, non-tender, nondistended. No rebound tenderness or guarding. MUSCULOSKELETAL: No obvious deformities. No clubbing. No cyanosis. No edema. NEUROLOGICAL: Awake and alert. No obvious cranial nerve deficits. Motor grossly within normal limits. Normal speech. Data Data Last Documented VS Vital Signs Date Time Temp Pulse Resp B/P Pulse Ox O2 Delivery O2 Flow Rate FiO2 06/29/16 08:40 97 24 115/73 95 Nasal Cannula 2 06/29/16 07:31 97.6 Orders Complete Blood Count With Diff (06/29/16 07:47) Basic Metabolic Panel (Bmp) (06/29/16 07:47) Act Partial Throm Time (Ptt) (06/29/16 07:47) Prothrombin Time / Inr (Pt) (06/29/16 07:47) Ckmb (Isoenzyme) Profile (06/29/16 07:47) Troponin I (06/29/16 07:47) Influenzae A/B Antigen (06/29/16 07:47) Iv Access Insert/Monitor (06/29/16 07:47) Electrocardiogram (06/29/16 07:47) Ecg Monitoring (06/29/16 07:47) Oximetry (06/29/16 07:47) Oxygen Administration (06/29/16 07:47) Ct Pulmonary Angiogram (06/29/16 07:47) Sodium Chloride 0.9% Flush (Ns Flush) (06/29/16 08:00) Albuterol-Ipratropium Neb (Duoneb Neb) (06/29/16 08:00) Lorazepam Inj (Ativan Inj) (06/29/16 08:00) CKMB (06/29/16 08:10) CKMB% (06/29/16 08:10) Vascular Poc Ultrasound (06/29/16 ) Iohexol 350 Inj (Omnipaque 350 Inj) (06/29/16 09:30) Labs Laboratory Tests Test 06/29/16 08:10 White Blood Count 11.5 TH/MM3 Red Blood Count 4.72 MIL/MM3 Hemoglobin 15.4 GM/DL Hematocrit 44.7 % Mean Corpuscular Volume 94.7 FL Mean Corpuscular Hemoglobin 32.7 PG Mean Corpuscular Hemoglobin 34.5 % Concent Red Cell Distribution Width 13.6 % Platelet Count 282 TH/MM3 Mean Platelet Volume 8.5 FL Neutrophils (%) (Auto) 69.8 % Lymphocytes (%) (Auto) 20.8 % Monocytes (%) (Auto) 8.3 % Eosinophils (%) (Auto) 0.6 % Basophils (%) (Auto) 0.5 % Neutrophils # (Auto) 8.0 TH/MM3 Lymphocytes # (Auto) 2.4 TH/MM3 Monocytes # (Auto) 1.0 TH/MM3 Eosinophils # (Auto) 0.1 TH/MM3 Basophils # (Auto) 0.1 TH/MM3 CBC Comment DIFF FINAL Differential Comment Prothrombin Time 10.1 SEC Prothromb Time International 0.9 RATIO Ratio Activated Partial 26.4 SEC Thromboplast Time Sodium Level 140 MEQ/L Potassium Level 3.8 MEQ/L Chloride Level 105 MEQ/L Carbon Dioxide Level 25.2 MEQ/L Anion Gap 10 MEQ/L Blood Urea Nitrogen 13 MG/DL Creatinine 1.32 MG/DL Estimat Glomerular Filtration 42 ML/MIN Rate Random Glucose 83 MG/DL Calcium Level 9.0 MG/DL Total Creatine Kinase 101 U/L Creatine Kinase MB LESS THAN 0.5 NG/ML Troponin I LESS THAN 0.02 NG/ML MDM Medical Decision Making Medical Screen Exam Complete: Yes Emergency Medical Condition: Yes Interpretation(s) EKG: NSR 81bpm. Normal axis. No ST segment elevation or depression. Laboratory Tests Test 06/29/16 08:10 White Blood Count 11.5 TH/MM3 (4.0-11.0) Red Blood Count 4.72 MIL/MM3 (4.00-5.30) Hemoglobin 15.4 GM/DL (11.6-15.3) Hematocrit 44.7 % (35.0-46.0) Mean Corpuscular Volume 94.7 FL (80.0-100.0) Mean Corpuscular Hemoglobin 32.7 PG (27.0-34.0) Mean Corpuscular Hemoglobin 34.5 % Concent (32.0-36.0) Red Cell Distribution Width 13.6 % (11.6-17.2) Platelet Count 282 TH/MM3 (150-450) Mean Platelet Volume 8.5 FL (7.0-11.0) Neutrophils (%) (Auto) 69.8 % (16.0-70.0) Lymphocytes (%) (Auto) 20.8 % (9.0-44.0) Monocytes (%) (Auto) 8.3 % (0.0-8.0) Eosinophils (%) (Auto) 0.6 % (0.0-4.0) Basophils (%) (Auto) 0.5 % (0.0-2.0) Neutrophils # (Auto) 8.0 TH/MM3 (1.8-7.7) Lymphocytes # (Auto) 2.4 TH/MM3 (1.0-4.8) Monocytes # (Auto) 1.0 TH/MM3 (0-0.9) Eosinophils # (Auto) 0.1 TH/MM3 (0-0.4) Basophils # (Auto) 0.1 TH/MM3 (0-0.2) CBC Comment DIFF FINAL Differential Comment Prothrombin Time 10.1 SEC (9.8-11.6) Prothromb Time International 0.9 RATIO Ratio Activated Partial 26.4 SEC Thromboplast Time (24.3-30.1) Sodium Level 140 MEQ/L (136-145) Potassium Level 3.8 MEQ/L (3.5-5.1) Chloride Level 105 MEQ/L (98-107) Carbon Dioxide Level 25.2 MEQ/L (21.0-32.0) Anion Gap 10 MEQ/L (5-15) Blood Urea Nitrogen 13 MG/DL (7-18) Creatinine 1.32 MG/DL (0.50-1.00) Estimat Glomerular Filtration 42 ML/MIN (>89) Rate Random Glucose 83 MG/DL (74-106) Calcium Level 9.0 MG/DL (8.5-10.1) Total Creatine Kinase 101 U/L (26-192) Creatine Kinase MB LESS THAN 0.5 NG/ML (0.5-3.6) Troponin I LESS THAN 0.02 NG/ML (0.02-0.05) Last Impressions CT Angiography 06/29/16 [id number] Signed Impressions: Service Date/Time: Wednesday, June 29, 2016 09:16 - CONCLUSION: Negative for pulmonary embolism and negative for acute cardiopulmonary process. Lux Perry MD Differential Diagnosis Anxiety vs. URI vs. PNA vs. COPD exacerbation vs. PE vs. ACS Narrative Course 50yo F with URI symptoms very anxious. This is patient's second visit to the ED this week and pt was initially tachycardic so will do CTA to r/o PE. Labs reviewed, mild leukocytosis at 11.5. Troponin negative. Creatinine mildly elevated at 1.32. Pt given ativan 1mg IV, and albuterol neb. Pt reevaluated at bedside and feels better. She is requesting dilaudid with benadryl for her chronic pain. I explained to her that her pain seems more musculoskeletal and I will give her valium for it. Instructed her to follow up with her PMD for chronic pain. CT angio showed no PE and negative for acute cardiopulmonary process. Return precautions given. Diagnosis Primary Impression: Bronchitis Patient Instructions: General Instructions Departure Forms: Tests/Procedures Additional Instructions: Please follow up with your PMD in 3-7 days. Return to the ED if symptoms worsen. Med/Other Pt SpecificInfo: Prescription(s) given Scripts Dextromethorphan Polistirex Liq (Robitussin 12 Hour Cough Liq)30 Mg/5 Ml Sus10 Ml PO Q12H PRN (COUGH) 5 Days Ref 0 Prov:Kathy Alonso DO 06/29/16 Disposition: 01 DISCHARGE HOME Condition: Stable Kathy Alonso DO Jun 29, 2016 07:54
[2016-06-29] MEDS ORDERED: LORazepam 2 MG/ML VIAL IV PUSH ONE (08:00)
[2016-06-29] MEDS ORDERED: SODIUM CHLORIDE 0.9% FLUSH 5 ML FLUSH IVF PRN (08:00)
[2016-06-29] MEDS: RESP: ALBUTEROL 2.5 MG/IPRATROPIUM 0.5 MG NEB (SCH) INH ×2 (08:09→08:23)
[2016-06-29 08:11] VITALS: O2SAT 96
[2016-06-29 08:39] LABS: BASOPHIL # 0.1 TH/MM3 (0-0.2); BASOPHIL % 0.5 % (0.0-2.0); EOSINOPHIL # 0.1 TH/MM3 (0-0.4); EOSINOPHIL % 0.6 % (0.0-4.0); HEMATOCRIT 44.7 % (35.0-46.0); LYMPH % 20.8 % (9.0-44.0); LYMPHOCYTE # 2.4 TH/MM3 (1.0-4.8); MEAN CELL VOLUME 94.7 FL (80.0-100.0); MEAN CORPUSCULAR HEMOGLOBIN 32.7 PG (27.0-34.0); MEAN CORPUSCULAR HGB CONC 34.5 % (32.0-36.0); MONO % 8.3 % (0.0-8.0); NEUT % 69.8 % (16.0-70.0); PLATELET COUNT 282 TH/MM3 (150-450); RED BLOOD COUNT 4.72 MIL/MM3 (4.00-5.30); RED CELL DISTRIBUTION WIDTH 13.6 % (11.6-17.2); WHITE BLOOD COUNT 11.5 TH/MM3 (4.0-11.0)
[2016-06-29 08:40] VITALS: BP 115/73; PULSE 97; RESP 24; O2SAT 95
[2016-06-29 08:43] LABS: HEMO FLAGS DIFF FINAL
[2016-06-29 08:56] LABS: APTT (PATIENT) 26.4 SEC (24.3-30.1); INTERNATIONAL NORMALIZED RATIO 0.9 RATIO; PROTHROMBIN TIME - PATIENT 10.1 SEC (9.8-11.6)
[2016-06-29 08:57] LABS: ANION GAP 10 MEQ/L (5-15); BICARBONATE 25.2 MEQ/L (21.0-32.0); BLOOD UREA NITROGEN 13 MG/DL (7-18); CHLORIDE 105 MEQ/L (98-107); GLOMERULAR FILTRATION RATE 42 ML/MIN (>89); POTASSIUM 3.8 MEQ/L (3.5-5.1); SODIUM (NA) 140 MEQ/L (136-145)
[2016-06-29 09:01] LABS: CREATINE KINASE 101 U/L (26-192)
[2016-06-29 09:13] LABS: CKMB LESS THAN 0.5 NG/ML (0.5-3.6)
[2016-06-29] MEDS ORDERED: IOHEXOL 350 MG/ML 10 ML VIAL (for RAD DIAG) IV ONE (09:30)
--- NOTE | 2016-06-29 09:46 | RADRPT ---
EXAM DATE/TIME: 06/29/2016 09:16 [facility] COMPARISON: CHEST SINGLE AP, June 27, 2016, 1:11. INDICATIONS : Shortness of breath, cough, chest pain for one day. IV CONTRAST: 74 cc Omnipaque 350 (iohexol) IV RADIATION DOSE: 23.19 CTDIvol (mGy) MEDICAL HISTORY : Rheumatoid arthritis. SURGICAL HISTORY : Appendectomy. Cholecystectomy.Hysterectomy. ENCOUNTER: Initial ACUITY: 1 day PAIN SCALE: 4/10 LOCATION: Bilateral chest TECHNIQUE: Volumetric scanning of the chest was performed using a pulmonary embolism protocol MIP images were re constructed. Using automated exposure control and adjustment of the mA and/or kV according to patien t size, radiation dose was kept as low as reasonably achievable to obtain optimal diagnostic quality images. FINDINGS: PULMONARY ARTERIES: No filling defects are seen in the pulmonary arteries through the segmental level. LUNGS: There is no consolidation or pneumothorax . No concerning pulmonary nodule is visualized. Minimal ar ea of scarring right middle lobe medial segment PLEURAE: There is no pleural thickening or pleural effusion. MEDIASTINUM: There is good visualization of the great vessels of the middle mediastinum. No evidence of mediastin al or hilar adenopathy/mass. MUSCULOSKELETAL: Within normal limits for patient age. MISCELLANEOUS: The visualized upper abdominal organs demonstrate no acute abnormality. CONCLUSION: Negative for pulmonary embolism and negative for acute cardiopulmonary process. Lux Perry MD on June 29, 2016 at 9:40 Board Certified Radiologist. This report was verified electronically.
[2016-06-29] MEDS ORDERED: DEXT1SUS PO (10:38)
[2016-06-29] MEDS ORDERED: DIAZEPAM 5 MG TAB PO ONE (10:45)
--- NOTE | 2016-06-29 13:51 | EKG ---
Date Performed: 06/29/2016 Time Performed: 08:02:34 PTAGE: 50 years EKG: Sinus rhythm LOW QRS VOLTAGE IN PRECORDIAL LEADS POSSIBLE RIGHT VENTRICULAR CONDUCTION DELAY BORDERLINE ECG PREVIOUS TRACING : 05/22/2016 11.51 No significant change from previous tracing noted. DOCTOR: Buck Hardwick Interpretating Date/Time 06/29/2016 13:49:46
[2016-06-30] MEDS ORDERED: HYDR-3583 PO (08:20)
[2016-06-30] MEDS ORDERED: DIAZ5 PO (08:20)
[2016-07-15] MEDS ORDERED: DIAZ5 PO (15:27)
[2016-07-27] MEDS ORDERED: NORC5TAB PO (10:56)
[2016-08-20] MEDS ORDERED: DIAZ5 PO (14:32)
[2016-08-20] MEDS ORDERED: HYDR-3583 PO (14:32)
== END 2016-06-29 18:15 | disposition home or self-care (01) ==
LOC: NEPE 07:26
DX: J40 Bronchitis, not specified as acute or chronic (principal); M06.9 Rheumatoid arthritis, unspecified; M32.9 Systemic lupus erythematosus, unspecified; F41.8 Other specified anxiety disorders; F17.210 Nicotine dependence, cigarettes, uncomplicated; F12.10 Cannabis abuse, uncomplicated; R00.0 Tachycardia, unspecified
CPT/HCPCS: 71275; 80048; 82550; 82552; 84484; 85025; 85610; 85730; 87804; 93005; 94640; 94664; 96374; 99284; J2060; Q9967